=== PATIENT | male | born 1975 | race Caucasian/White ===

== ENCOUNTER 2025-03-20 20:30 | Emergency (ER) | payer SELFPAY ==
[~2025-03-20] VITALS: Ht 182.9 cm; Wt 99.8 kg
--- NOTE | 2025-03-20 20:37 | EKG ---
[facility] Test Date: 2025-03-20 Test Time: 20:31:47 Pat Name: FLOR SANDHU Department: ED Room: Gender: M Station Agent: [id number] : 1975 Requested By: ZAYDA SORIANO Order Number: [id number] Reading MD: Dorian Cantu Measurements Intervals [place] Rate: 99 P: 45 NV: 139 QRS: 87 QRSD: 108 T: 92 QT: 346 QTc: 445 Interpretive Statements Sinus rhythm Inferior infarct, old Nonspecific T abnormalities, lateral leads No previous ECG available for comparison Electronically Signed On 03-20-2025 22:00:24 CDT by Dorian Cantu Please click the below link to view image of tracing.
--- NOTE | 2025-03-20 20:45 | NUR ---
UA CUP PROVIDED
--- NOTE | 2025-03-20 20:59 | NUR ---
UA COLLECTED AND SENT
[2025-03-20] MEDS: 0.9%NACL 1000ML 1,000 ML IV ONE ×2 (21:29→23:30)
[2025-03-20 21:49] LABS: APPEARANCE,URINE CLEAR (CLEAR); GLUCOSE, URINE (UA) NEGATIVE (NEGATIVE); LEUKOCYTE ESTERASE ,URINE NEGATIVE Leu/uL (NEGATIVE); NITRATE,URINE NEGATIVE (NEGATIVE); OCCULT BLOOD,URINE +- (TRACE) (NEGATIVE)
[2025-03-20 21:51] LABS: IMMATURE GRANULOCYTE ABSOLUTE 0.01 K/uL (0-1); NUCLEATED RED BLOOD CELLS 0.0 % (0.0-0.19); PLATELET COUNT (AUTO) 132 K/uL (130-400); RED BLOOD CELL COUNT(AUTO) 4.47 MIL/uL (4.50-6.20); RED CELL DISTRIBUTION WIDTH 13.6 % (11.0-15.5); WHITE BLOOD COUNT (AUTO) 5.5 K/uL (4.8-10.8)
[2025-03-20 21:51] LABS: ADD UA MICROSCOPIC YES
[2025-03-20 21:57] LABS: AMPHET/METH SCREEN,URINE NEGATIVE (NEGATIVE); BARBITURATE SCREEN, URINE NEGATIVE (NEGATIVE); CANNABINOID SCREEN,URINE NEGATIVE (NEGATIVE); COCAINE SCREEN,URINE NEGATIVE (NEGATIVE)
[2025-03-20 21:58] LABS: CREATININE 0.9 mg/dL (0.5-1.3); GLOMERULAR FILTR. RATE CALC 103.0 mL/min (>90); GLUCOSE,RANDOM 113.0 mg/dL (70-105); SODIUM SERUM 141.0 mmol/L (136-145); UREA NITROGEN, BLOOD 7.0 mg/dL (7-18)
[2025-03-20 22:09] LABS: CREATINE KINASE, TOTAL 205.0 U/L (21-232)
[2025-03-20 22:12] LABS: ALCOHOL, BLOOD 415.0 mg/dL (0-10)
[2025-03-20 22:32] VITALS: BP 127/88; PULSE 92; RESP 20; TEMP 97.9; O2SAT 97
--- NOTE | 2025-03-20 22:33 | HMCIMG ---
EXAM: CT Head Without IV contrast. CLINICAL HISTORY: Patient presents with dizziness. TECHNIQUE: Axial computed tomography images of the head/brain without intravenous contrast. COMPARISON: None provided. FINDINGS: BRAIN: Mild diffuse cerebral atrophy in the form of prominent cortical sulci and bilateral sylvian fissures. No evidence of acute hemorrhage. No mass lesion. No CT evidence for acute territorial infarct. No midline shift or extra-axial collections. VENTRICLES: No hydrocephalus. ORBITS: The orbits are unremarkable. SINUSES AND MASTOIDS: Mucosal thickening in the right posterior ethmoid air cells. The remaining paranasal sinuses and mastoid air cells are clear. BONES: No fracture. SOFT TISSUES: Unremarkable. IMPRESSION: Mild diffuse cerebral atrophy. No acute intracranial abnormality. /[place]
--- NOTE | 2025-03-20 22:55 | HMCIMG ---
EXAM: CR Chest, 1 view CLINICAL HISTORY: Chest pain. COMPARISON: None provided. FINDINGS: Hyperinflated lungs, likely mild COPD. The lungs show no infiltrates or other acute findings. No pleural effusion or pneumothorax. The cardiomediastinal silhouette is within normal limits. Status poststernotomy No acute osseous abnormality. IMPRESSION: No acute cardiopulmonary process is evident. Mild COPD. /[place]
--- NOTE | 2025-03-20 23:20 | NUR ---
AFTER TALKING WITH ED PROVIDER, PT AND WALKED OUT OF ED. NO IV IN PLACE. ED LOBBY AND OUTSIDE PARKING LOT SEARCHED. PT AMBULATORY.
--- NOTE | 2025-03-20 23:33 | ERN ---
ED Note History of Present Illness Stated Complaint: SOB,HEADACHE,DIZZINESS,PALPITATION Chief Complaint: Multiple Complaints Time Seen by MD: 21:06 Time Seen by Midlevel: 21:06 Dictation: The patient is a 50-year-old male with a history of CABG, CAD, alcohol abuse who presents to the emergency department with complaints of headache and dizziness onset today. Patient reports that for the past three weeks he has had symptoms of an upper respiratory infection reports nasal congestion, cough. Patient reports that they diagnosed him with COVID. Patient denies any fevers, denies any head trauma, denies any nausea or vomiting, denies any chest pain. Patient reports that he drinks about four beers a day. 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 Surgical History: CABG, Other Surgical History Other: CARDIAC STENT RN Note Reviewed/Agreed w/PFSH: Yes Review of System Dictation Constitutional: Negative for fever,chills, and weight loss Eyes: Negative for injury, pain,redness, and discharge ENT: Negative for injury,pain or swelling positive for nasal congestion Cardiovascular: Negative for chest pain, palpitations, and edema Respiratory: Negative for , and wheezing, positive for shortness of breath Abdomen/GI: Negative for abdominal pain, nausea, vomiting, diarrhea, and constipation Back: Negative for injury and pain : Negative for injury, bleeding and discharge MS/Extremity: Negative for injury and deformity Skin: Negative for rash, and discoloration Neuro: Negative for weakness, numbness, tingling, and seizure positive for headache, dizziness Psych: Negative for suicide ideation, homicidal ideation, and hallucinations Initial Vital Sign VS Vital Signs Date Time Temp Pulse Resp B/P (MAP) Pulse Ox O2 Delivery O2 Flow Rate FiO2 03/20/25 20:32 97.9 106 20 133/96 97 Room Air 03/20/25 21:14 0 21 Physical Exam Dictation Vital Signs reviewed General Appearance: Alert, oriented x 3, no acute distress, well developed, nourished. Head and Face: non-traumatic. Eyes: PERRL, pink conjunctivas, eyelid no trauma, anterior chamber with arcus senilis. Ears: Pinnas intact and no signs of trauma or erythema ear canals clear and no discharge TM no erythema Nose: No discharge, no bleeding. Oropharynx: Mouth normal, tongue pink. pharynx clear,no erythema, tonsils no exudates, no abscesses noted, mucous membrane moist Neck: Supple, non-tender, no thyromegaly, no masses, no JVD, no bruits Breast:Deferred Chest:No tenderness, no crepitus, no paradoxical movement, no retractions Lungs:Clear, well-ventilated, symmetric, no rales, no wheezing, no rhonchi, no stridor, good breath sounds bilaterally Heart: Regular rate, regular rhythm, no murmur, no gallops Vascular: no peripheral edema, Abdomen: Soft, positive bowel sounds, nondistended, no guarding, nontender, no rebound, no masses no hepatomegaly, no splenomegaly, no Arias's sign, no hernias. Rectal: Deferred Genital: Deferred Neurological: Slightly slurred speech, motor function intact, sensory function intact , upper extremities equal in strength, lower extremities equal in strength, no facial droop, steady gait Musculoskeletal: Neck nontender, full range of motion, back nontender, full range of motion, Extremities: nontender, full range of motion Skin: Color pink, dry, no turgor, no rash, no lacerations, no abrasions, no contusions. Lymphatic: Deferred Results (Laboratory/Radiology) Laboratory/Radiology Laboratory Tests Test 03/20/25 20:59 03/20/25 21:26 Urine Color LIGHT-YELLOW (YELLOW) Urine Appearance CLEAR (CLEAR) Urine pH 6.0 (5.0-8.0) Urine Specific [place] 1.008 (1.001-1.031) Urine Protein 20 mg/dL (NEGATIVE) H Urine Glucose (UA) NEGATIVE mg/dL (NEGATIVE) Urine Ketones NEGATIVE mg/dL (NEGATIVE) Urine Occult Blood +- (TRACE) (NEGATIVE) H Urine Nitrate NEGATIVE (NEGATIVE) Urine Bilirubin NEGATIVE mg/dL (NEGATIVE) Urine Urobilinogen 0.2 mg/dL (0.2-1.0) Urine Leukocyte Esterase NEGATIVE [place]/uL Urine RBC None /HPF (0-1) Urine WBC 0-1 /HPF (0-1) Urine Bacteria None /HPF (None Seen) Urine Opiates Screen NEGATIVE (NEGATIVE) Urine Barbiturates Screen NEGATIVE (NEGATIVE) Urine Phencyclidine Screen NEGATIVE (NEGATIVE) Urine Amphetamines Screen NEGATIVE (NEGATIVE) Urine Benzodiazepines Screen NEGATIVE (NEGATIVE) Urine Cocaine Screen NEGATIVE (NEGATIVE) Urine Marijuana (THC) Screen NEGATIVE (NEGATIVE) White Blood Count 5.5 K/uL (4.8-10.8) Red Blood Count 4.47 MIL/uL (4.50-6.20) L Hemoglobin 14.5 g/dL (14.0-18.0) Hematocrit 41.2 % (42-54) L Mean Corpuscular Volume 92.2 fL (79-99) Mean Corpuscular Hemoglobin 32.4 pg (27.0-33.0) Mean Corpuscular Hemoglobin Concent 35.2 g/dL (32.0-36.0) Red Cell Distribution Width 13.6 % (11.0-15.5) Platelet Count 132 K/uL (130-400) Mean Platelet Volume 9.5 fL (7.5-10.5) Immature Granulocyte % (Auto) 0.2 % (0-1) Neutrophils (%) (Auto) 32.4 % (40.0-77.0) L Lymphocytes (%) (Auto) 58.2 % (21.0-51.0) H Monocytes (%) (Auto) 8.3 % (3.0-13.0) Eosinophils (%) (Auto) 0.7 % (0.0-8.0) Basophils (%) (Auto) 0.2 % (0.0-5.0) Neutrophils # (Auto) 1.8 K/uL (1.8-7.7) Lymphocytes # (Auto) 3.2 K/uL (1.0-4.8) Monocytes # (Auto) 0.5 K/uL (0.1-1.0) Eosinophils # (Auto) 0.04 K/uL (0.00-0.70) Basophils # (Auto) 0.01 K/uL (0.00-0.20) Absolute Immature Granulocyte (auto 0.01 K/uL (0-1) Nucleated Red Blood Cells 0.0 % (0.0-0.19) Sodium Level 141 mmol/L (136-145) Potassium Level 3.5 mmol/L (3.5-5.1) Chloride Level 102 mmol/L (101-111) Carbon Dioxide Level 28 mmol/L (21-32) Blood Urea Nitrogen 7 mg/dL (7-18) Creatinine 0.9 mg/dL (0.5-1.3) Glomerular Filtration Rate Calc 103 mL/min (>90) Random Glucose 113 mg/dL (70-105) H Total Calcium 8.6 mg/dL (8.5-10.1) Total Creatine Kinase 205 U/L (21-232) Troponin I High Sensitivity 5 ng/L (4-75) Serum Alcohol 415 mg/dL (0-10) *H REASON: dizzy ORDERING PHYSICIAN: DRAKE ROSE PROCEDURE: HEAD WO - CT HEAD/BRAIN W/O CONTRAST EXAM: CT Head Without IV contrast. CLINICAL HISTORY: Patient presents with dizziness. TECHNIQUE: Axial computed tomography images of the head/brain without intravenous contrast. COMPARISON: None provided. FINDINGS: BRAIN: Mild diffuse cerebral atrophy in the form of prominent cortical sulci and bilateral sylvian fissures. No evidence of acute hemorrhage. No mass lesion. No CT evidence for acute territorial infarct. No midline shift or extra-axial collections. VENTRICLES: No hydrocephalus. ORBITS: The orbits are unremarkable. SINUSES AND MASTOIDS: Mucosal thickening in the right posterior ethmoid air cells. The remaining paranasal sinuses and mastoid air cells are clear. BONES: No fracture. SOFT TISSUES: Unremarkable. IMPRESSION: Mild diffuse cerebral atrophy. No acute intracranial abnormality. /[place] REASON: CHEST PAIN ORDERING PHYSICIAN: ZAYDA SORIANO MD PROCEDURE: CXR1VW - CHEST 1VW EXAM: CR Chest, 1 view CLINICAL HISTORY: Chest pain. COMPARISON: None provided. FINDINGS: Hyperinflated lungs, likely mild COPD. The lungs show no infiltrates or other acute findings. No pleural effusion or pneumothorax. The cardiomediastinal silhouette is within normal limits. Status poststernotomy No acute osseous abnormality. IMPRESSION: No acute cardiopulmonary process is evident. Mild COPD. /[place] Labs Reviewed?: Yes EKG: (+) rhythm (Sinus rhythm) EKG Comment: Date:03/20/2025 Time:2030 Ventricular rate:99 TN interval:139 QRS duration:108 QT/QTc:346/445 EKG interpretation: Sinus rhythm Reviewed by ED Attending no STEMI ED Course ED Course Orders Procedure Category Date Status Time Vital Signs Per CPOE 03/20/25 Transmitted Routine 20:33 Chest 1vw RAD 03/20/25 Resulted 20:33 12 Lead Ekg Tracing- EKG 03/20/25 Resulted Technical 20:33 Oxygen By Nc/Pulse Ox CPOE 03/20/25 Transmitted 20:33 Maintain Iv CPOE 03/20/25 Transmitted 20:33 Iv Insertion CPOE 03/20/25 Transmitted 20:33 Cardiac Monitoring CPOE 03/20/25 Transmitted 20:33 Pulse Oximetry With CPOE 03/20/25 Transmitted Vs And Prn 20:33 Cbc With Differential LAB 03/20/25 Complete 20:33 Activity: Br W/Brp CPOE 03/20/25 Transmitted With Assist 20:33 Creatine Kinase, Total LAB 03/20/25 Complete 20:33 Troponin I High LAB 03/20/25 Complete Sensitivity 20:33 Urinalysis Profile LAB 03/20/25 Complete 20:33 Basic Metabolic Panel LAB 03/20/25 Complete 20:33 Drug Screen Urine LAB 03/20/25 Complete 20:33 Alcohol, Blood LAB 03/20/25 Complete 20:33 Ct Head/Brain W/O CT 03/20/25 Resulted Contrast 21:12 Meclizine Hcl 25 Mg PHA 03/20/25 Complete (Antivert 25 Mg) 21:30 0.9%Nacl 1000ml (Ns PHA 03/20/25 Complete 1000ml) 21:30 0.9%Nacl 1000ml (Ns PHA 03/20/25 Complete 1000ml) 23:30 Current Medications Medications (Trade) Dose Ordered Sig/Ab Route PRN Reason Start Time Stop Time Status Last Admin Dose Admin Meclizine HCl (ANTIvert 25 mg) 25 mg ONCE ONCE PO 03/20/25 21:30 03/20/25 21:31 DC 03/20/25 21:29 Sodium Chloride 1,000 ml @ 0 mls/hr ONCE ONCE IV 03/20/25 21:30 03/20/25 21:31 DC 03/20/25 21:29 Sodium Chloride 1,000 ml @ 0 mls/hr ONCE ONCE IV 03/20/25 23:30 03/20/25 23:31 DC Vital Signs Date Time Temp Pulse Resp B/P (MAP) Pulse Ox O2 Delivery O2 Flow Rate FiO2 03/20/25 22:32 97.9 92 20 127/88 97 Room Air* 0 21 03/20/25 21:14 97.9 106 20 133/96 97 Room Air* 0 21 03/20/25 20:32 97.9 106 20 133/96 97 Room Air Medical Decision Making MDM The patient is a 50-year-old male with a history of CABG, CAD, alcohol abuse who presents to the emergency department with complaints of headache and dizziness onset today. Patient reports that for the past three weeks he has had symptoms of an upper respiratory infection reports nasal congestion, cough. Patient reports that they diagnosed him with COVID. Patient finished a treatment of azithromycin prescribed by her primary doctor. Patient reports also that he had a bug in his ear and his primary doctor gave him an antibiotic for his ear. Patient denies any fevers, denies any head trauma, denies any nausea or vomiting, denies any chest pain. Patient reports that he drinks about four beers a day. CBC showed no leukocytosis, no anemia, chemistry showed no electrolyte imbalance, normal renal function, negative troponin alcohol level 415. X-ray showed no consolidations. CT head showed no acute intracranial bleeding, right mucosal thickening. Spoke to patient's and patient about laboratory results. I explained that because his alcohol level was critically high we wou ld have to monitoring and recheck it to make sure that it is trending down. I was later informed by nursing staff that patient eloped from ER and was nowhere to be found. Patient patient alert and oriented x4 and that is the presence of his . Patient last seen in no acute distress, ambulatory. Differential diagnosis: Intracerebral hemorrhage, vertigo, alcohol intoxication, electrolyte imbalance, ACS DX & DISP Disposition: Other(Comment) (Eloped) Departure Condition: Stable Referrals: SELF,REFERRAL (PCP) I have reviewed the case, and I agree with, Diagnosis and Plan DRAKE ROSEP Mar 20, 2025 23:33
--- NOTE | 2025-03-20 23:34 | NUR ---
PT NOT IN FAST TRACK OR LOBBY, NOT OUTSIDE
== END 2025-03-20 23:20 | disposition left against medical advice (07) ==
LOC: EDH 20:30
DX: R42 Dizziness and giddiness (principal); R00.2 Palpitations; R09.81 Nasal congestion; I25.10 Atherosclerotic heart disease of native coronary artery without angina pectoris; I25.2 Old myocardial infarction; Z95.1 Presence of aortocoronary bypass graft; Z95.5 Presence of coronary angioplasty implant and graft
CPT/HCPCS: 99285; 70450; 71045; 82550; 84484; 80048; 80305; 85025; 81001; 36415; 93005; J7030